=== PATIENT | female | born 1935 | race Caucasian/White ===

== ENCOUNTER 2016-12-01 16:40 | Emergency (ER) | payer MEDICARE, MEDICAID ==
[~2016-12-01] VITALS: Ht 162.6 cm; Wt 52.6 kg
[~2016-12-01 16:40] MED LIST: ALEN70TA5 PO; ALPR-475 PO; ALPR0.25 PO; ALPR0.5T6 PO; Amlodipine Besylate PO; DULO20CA45 PO; FLUO10CA13 PO; FLUO20CA8 PO; HYDR-3144 PO; HYDR-3240 PO; HYDR-3307 PO; LEVO250T23 PO; METH500T97 PO; METO25TA35 PO; NITR0.4T8 SL; PANT20TA2 PO; PANT40TA3 PO; PANT40TA5 PO; PREG75CA PO; TRIA1TAB3 PO; VALS320T2 PO; VALS40TA2 PO; ZOLP-413 PO
[2016-12-01 17:40] LABS: ASPARTATE AMINO TRANSFERASE 19 U/L (15-37); BLOOD UREA NITROGEN 47 mg/dL (7-18)
[2016-12-01] MEDS ORDERED: HYDR-3341 PO (17:58)
[2016-12-01] MEDS ORDERED: TRAZ50TA18 PO (17:58)
[2016-12-01] MEDS ORDERED: PANT40TA5 PO (17:59)
[2016-12-01] MEDS ORDERED: RISP0.5T3 PO (18:00)
[2016-12-01] MEDS ORDERED: CHLO25TA PO (18:01)
[2016-12-01] MEDS ORDERED: DEXAMETHASONE 4 MG/ML, 1ML PO ONE (19:00)
[2016-12-01] MEDS ORDERED: DEXAMETHASONE 4 MG/ML, 1ML ONE (19:06)
[2016-12-01 20:36] VITALS: BP 174/72
== END 2016-12-01 20:38 | disposition home or self-care (01) ==
LOC: ED 18:08
DX: J02.8 Acute pharyngitis due to other specified organisms (principal); M79.651 Pain in right thigh; I10 Essential (primary) hypertension; Z90.710 Acquired absence of both cervix and uterus
CPT/HCPCS: 36415; 73552; 80053; 81001; 85025; 93971; 99285; J1100

== ENCOUNTER 2016-12-03 23:12 | Inpatient (IN) | payer MEDICAID, MEDICARE ==
[~2016-12-03] VITALS: Ht 162.6 cm; Wt 46.5 kg
[2016-12-03] MEDS: POTASSIUM CHLORIDE 20 MEQ in SODIUM CHLORIDE 0.45% 1,000 ML IV SCH (02:25)
[~2016-12-03 23:12] MED LIST changes: +CHLO25TA PO; +HYDR-3341 PO; +RISP0.5T3 PO; +TRAZ50TA18 PO
[2016-12-04] MEDS ORDERED: POLYETHYLENE GLYCOL 17 GM PACKET PO PRN (00:53)
[2016-12-04] MEDS ORDERED: CHLORTHALIDONE 25 MG TABLET PO SCH (00:53)
[2016-12-04] MEDS ORDERED: TRAZODONE 50MG TABLET PO SCH (00:53)
[2016-12-04] MEDS ORDERED: DOCUSATE 100 MG CAPSULE PO SCH (00:53)
[2016-12-04] MEDS ORDERED: METOPROLOL TARTRATE 25 MG TABLET PO SCH (00:53)
[2016-12-04] MEDS: POTASSIUM CHLORIDE 20 MEQ in SODIUM CHLORIDE 0.45% 1,000 ML IV SCH ×2 (01:06→15:00)
[2016-12-04 01:40] VITALS: BP 193/72
[2016-12-04] MEDS: hydrALAzine 20 MG/ML, 1ML IV PRN (05:05)
[2016-12-04] MEDS ORDERED: SODIUM CHLORIDE 0.9% 1,000ML IV ONE (08:00)
[2016-12-04] MEDS ORDERED: ACETAMINOPHEN 500 MG TABLET PO PRN (15:00)
[2016-12-04] MEDS ORDERED: LABETALOL 5MG/ML, 20ML IV PRN (15:30)
[2016-12-04] MEDS ORDERED: TRAM50TA2 PO (15:35)
[2016-12-04] MEDS ORDERED: VANCOMYCIN 900 MG in SODIUM CHLORIDE 0.9% 100 ML IV ONE (16:30)
[2016-12-04] MEDS ORDERED: PHARMACOKINETIC CONSULTATION MC ONE (16:30)
[2016-12-04] MEDS ORDERED: VANCOMYCIN PER PHARMACY MC PRN (16:30)
[2016-12-04] MEDS ORDERED: PHARMACOKINETIC MONITORING MC PRN (16:30)
[2016-12-04] MEDS ORDERED: LEVOFLOXACIN/PMX 750MG/150ML 150 ML IV ONE (16:53)
[2016-12-04] MEDS ORDERED: ACETAMINOPHEN 120 MG SUPP PR PRN (17:00)
[2016-12-04 21:37] LABS: PATH.CAST-FLAG NOT PRESENT; SPERM-FLAG NOT PRESENT; SRC-FLAG NOT PRESENT; XTAL-FLAG NOT PRESENT; YLC-FLAG NOT PRESENT
[2016-12-04] MEDS: HEPARIN 5,000 UNITS/ML, 1ML SQ SCH (21:54)
[2016-12-05] MEDS: POTASSIUM CHLORIDE 20 MEQ in SODIUM CHLORIDE 0.45% 1,000 ML IV SCH ×3 (03:25→21:53)
[2016-12-05 05:19] LABS: ASPARTATE AMINO TRANSFERASE 29 U/L (15-37); BLOOD UREA NITROGEN 38 mg/dL (7-18)
[2016-12-05] MEDS: HEPARIN 5,000 UNITS/ML, 1ML SQ SCH ×3 (05:21→21:54)
[2016-12-05 06:04] LABS: DIFF TOTAL CELLS COUNTED 100 CELL DIFF
[2016-12-05 06:06] LABS: VERIFY COUNTS? YES
[2016-12-05] MEDS ORDERED: PANTOPROZOLE 40MG TABLET PO SCH (07:30)
[2016-12-05] MEDS ORDERED: MAGNESIUM SULFATE PMX 4GM/100M 100 ML IV ONE (09:00)
[2016-12-05] MEDS: PIPERACILLIN/TAZO 3.375 GM in SODIUM CHLORIDE 0.9% 50 ML IV SCH ×2 (13:54→21:54)
[2016-12-05] MEDS: ACETAMINOPHEN 325 MG TABLET PO PRN (19:24)
[2016-12-05] MEDS: PIPERACILLIN/TAZO/PMX 3.375GM 50 ML IV SCH (21:57)
[2016-12-06 04:00] VITALS: BP 140/48
[2016-12-06 04:51] LABS: DIFF TOTAL CELLS COUNTED 100 CELL DIFF
[2016-12-06 04:53] LABS: HYPOCHROMIA 1+; VERIFY COUNTS? YES
[2016-12-06] MEDS: HEPARIN 5,000 UNITS/ML, 1ML SQ SCH ×3 (04:56→20:13)
[2016-12-06] MEDS: PIPERACILLIN/TAZO/PMX 3.375GM 50 ML IV SCH ×2 (04:56→15:26)
[2016-12-06 05:51] LABS: BLOOD UREA NITROGEN 43 mg/dL (7-18)
[2016-12-06 09:28] VITALS: BP 168/57
[2016-12-06] MEDS ORDERED: VANCOMYCIN PMX 1GM/200ML 200 ML IV ONE (11:00)
[2016-12-06 11:42] VITALS: BP 150/71
[2016-12-06] MEDS ORDERED: POLYETHYLENE GLYCOL 17 GM PACKET PO PRN (12:00)
[2016-12-06] MEDS ORDERED: BISACODYL 10 MG SUPP PR PRN (12:00)
[2016-12-06 14:55] VITALS: BP 155/74
[2016-12-06 15:19] VITALS: BP 188/66
[2016-12-06] MEDS: POTASSIUM CHLORIDE 20 MEQ in SODIUM CHLORIDE 0.45% 1,000 ML IV SCH (15:21)
[2016-12-06 15:40] LABS: BLOOD UREA NITROGEN 42 mg/dL (7-18)
[2016-12-06 15:57] LABS: ASPARTATE AMINO TRANSFERASE 20 U/L (15-37); BLOOD UREA NITROGEN 50 mg/dL (7-18)
[2016-12-06] MEDS ORDERED: LEVOFLOXACIN/PMX 500MG/100ML 100 ML IV SCH (17:00)
[2016-12-06 18:43] VITALS: BP 146/69
[2016-12-06] MEDS: METOPROLOL TARTRATE 25 MG TABLET PO SCH (20:13)
[2016-12-07] VITALS (7 sets, daily range): BP systolic 130–195; BP diastolic 65–80
[2016-12-07] MEDS: PIPERACILLIN/TAZO/PMX 3.375GM 50 ML IV SCH ×3 (00:16→15:52)
[2016-12-07] MEDS: ACETAMINOPHEN 325 MG TABLET PO PRN ×2 (04:01→12:03)
[2016-12-07 05:40] LABS: DIFF TOTAL CELLS COUNTED 100 CELL DIFF
[2016-12-07 05:42] LABS: BLOOD UREA NITROGEN 34 mg/dL (7-18)
[2016-12-07 05:44] LABS: VERIFY COUNTS? YES
[2016-12-07] MEDS: HEPARIN 5,000 UNITS/ML, 1ML SQ SCH ×3 (05:46→21:19)
[2016-12-07] MEDS: hydrALAzine 20 MG/ML, 1ML IV PRN ×2 (07:48→16:03)
[2016-12-07] MEDS: METOPROLOL TARTRATE 25 MG TABLET PO SCH ×2 (07:48→21:19)
[2016-12-07] MEDS: DOCUSATE 100 MG CAPSULE PO SCH (07:48)
[2016-12-07] MEDS: POTASSIUM CHLORIDE 20 MEQ in SODIUM CHLORIDE 0.45% 1,000 ML IV SCH (08:45)
[2016-12-07] MEDS ORDERED: LABETALOL 5MG/ML, 20ML IV PRN ×2 (09:30→15:30)
[2016-12-07] MEDS ORDERED: HALOPERIDOL 0.5 MG TABLET PO PRN (11:30)
[2016-12-07] MEDS: PANTOPROZOLE 40MG TABLET PO SCH (12:03)
[2016-12-07] MEDS ORDERED: OMNIPAQUE 350 MG/ML, 100ML BOTTLE ONE (12:36)
[2016-12-07] MEDS ORDERED: AMLODIPINE 5 MG TABLET PO ONE (13:30)
[2016-12-07] MEDS: MORPHINE SULFATE 4 MG/ML, 1ML IVPush PRN ×2 (16:20→22:46)
[2016-12-07] MEDS: RISPERIDONE 0.5 MG TABLET PO SCH (21:19)
[2016-12-08] MEDS: PIPERACILLIN/TAZO/PMX 3.375GM 50 ML IV SCH ×3 (00:12→15:53)
[2016-12-08 00:43] VITALS: BP 164/71
[2016-12-08] MEDS: POTASSIUM CHLORIDE 20 MEQ in SODIUM CHLORIDE 0.45% 1,000 ML IV SCH ×2 (02:11→12:18)
[2016-12-08] MEDS: HEPARIN 5,000 UNITS/ML, 1ML SQ SCH ×3 (05:15→21:18)
[2016-12-08 05:33] LABS: BLOOD UREA NITROGEN 24 mg/dL (7-18)
[2016-12-08 06:52] VITALS: BP 160/62
[2016-12-08] MEDS: PANTOPROZOLE 40MG TABLET PO SCH (08:19)
[2016-12-08] MEDS: METOPROLOL TARTRATE 25 MG TABLET PO SCH ×2 (08:19→21:18)
[2016-12-08] MEDS: AMLODIPINE 5 MG TABLET PO SCH (08:19)
[2016-12-08] MEDS: DOCUSATE 100 MG CAPSULE PO SCH (08:20)
[2016-12-08] MEDS: RISPERIDONE 0.5 MG TABLET PO SCH ×2 (08:21→21:19)
[2016-12-08 13:31] VITALS: BP 109/56
[2016-12-08] MEDS: AMOXICILLIN/CLAV 500-125MG TABLET PO SCH (17:09)
[2016-12-08 19:23] VITALS: BP 144/63
[2016-12-08] MEDS: ACETAMINOPHEN 325 MG TABLET PO PRN (21:18)
[2016-12-09 01:57] VITALS: BP 171/68
[2016-12-09] MEDS: AMOXICILLIN/CLAV 500-125MG TABLET PO SCH ×2 (04:40→16:32)
[2016-12-09] MEDS: HEPARIN 5,000 UNITS/ML, 1ML SQ SCH ×3 (04:40→20:36)
[2016-12-09 05:01] LABS: BLOOD UREA NITROGEN 25 mg/dL (7-18)
[2016-12-09 07:09] VITALS: BP 176/67
[2016-12-09] MEDS: DOCUSATE 100 MG CAPSULE PO SCH (07:55)
[2016-12-09] MEDS: AMLODIPINE 5 MG TABLET PO SCH (08:07)
[2016-12-09] MEDS: METOPROLOL TARTRATE 25 MG TABLET PO SCH ×2 (08:07→20:36)
[2016-12-09] MEDS: PANTOPROZOLE 40MG TABLET PO SCH (08:07)
[2016-12-09] MEDS: RISPERIDONE 0.5 MG TABLET PO SCH ×2 (08:09→20:36)
[2016-12-09 14:48] VITALS: BP 168/68
[2016-12-09 19:07] VITALS: BP 161/55
[2016-12-09 22:40] VITALS: BP 189/63
[2016-12-10 01:08] VITALS: BP 159/69
[2016-12-10] MEDS: AMOXICILLIN/CLAV 500-125MG TABLET PO SCH ×2 (04:36→15:26)
[2016-12-10] MEDS: HEPARIN 5,000 UNITS/ML, 1ML SQ SCH ×3 (04:37→20:30)
[2016-12-10 07:48] VITALS: BP 182/70
[2016-12-10] MEDS: RISPERIDONE 0.5 MG TABLET PO SCH ×2 (09:00→20:29)
[2016-12-10] MEDS: PANTOPROZOLE 40MG TABLET PO SCH (09:05)
[2016-12-10] MEDS: AMLODIPINE 5 MG TABLET PO SCH (09:05)
[2016-12-10] MEDS: DOCUSATE 100 MG CAPSULE PO SCH (09:05)
[2016-12-10] MEDS: METOPROLOL TARTRATE 25 MG TABLET PO SCH ×2 (09:05→20:29)
[2016-12-10 10:41] VITALS: BP 168/71
[2016-12-10 13:08] VITALS: BP 163/66
[2016-12-10 19:11] VITALS: BP 161/73
[2016-12-11 00:19] VITALS: BP 152/64
[2016-12-11] MEDS: HEPARIN 5,000 UNITS/ML, 1ML SQ SCH ×2 (05:12→15:15)
[2016-12-11] MEDS: AMOXICILLIN/CLAV 500-125MG TABLET PO SCH ×2 (05:12→16:58)
[2016-12-11 07:03] VITALS: BP 152/60
[2016-12-11] MEDS: DOCUSATE 100 MG CAPSULE PO SCH (09:00)
[2016-12-11] MEDS: RISPERIDONE 0.5 MG TABLET PO SCH (10:41)
[2016-12-11] MEDS: METOPROLOL TARTRATE 25 MG TABLET PO SCH (10:41)
[2016-12-11] MEDS: AMLODIPINE 5 MG TABLET PO SCH (10:41)
[2016-12-11] MEDS: ACETAMINOPHEN 325 MG TABLET PO PRN (10:41)
[2016-12-11] MEDS: PANTOPROZOLE 40MG TABLET PO SCH (10:41)
[2016-12-11 13:03] VITALS: BP 130/63
[2016-12-11] MEDS ORDERED: AMLO5TAB2 PO (14:24)
[2016-12-11] MEDS ORDERED: AMOX-367 PO (14:24)
[2016-12-11 16:58] VITALS: BP 141/59
== END 2016-12-11 17:40 | DRG 871 ==
LOC: CCU 23:12 → 3NE 12-06 15:15
PROVIDERS: ADMIT Family Medicine; ATTEND Family Medicine
PROC: 0T9B70Z Drainage of Bladder with Drainage Device, Via Natural or Artificial Opening (ICD-10-PCS; principal; 2016-12-04)
DX: A41.9 Sepsis, unspecified organism (principal); J18.9 Pneumonia, unspecified organism; N17.9 Acute kidney failure, unspecified; M48.54XA Collapsed vertebra, not elsewhere classified, thoracic region, initial encounter for fracture; E87.2 Acidosis; I10 Essential (primary) hypertension; D64.9 Anemia, unspecified; E04.1 Nontoxic single thyroid nodule; E83.39 Other disorders of phosphorus metabolism; E83.42 Hypomagnesemia; F03.90 Unspecified dementia, unspecified severity, without behavioral disturbance, psychotic disturbance, mood disturbance, and anxiety; G89.29 Other chronic pain; I70.1 Atherosclerosis of renal artery; K59.00 Constipation, unspecified; K80.20 Calculus of gallbladder without cholecystitis without obstruction; M40.204 Unspecified kyphosis, thoracic region; R32 Unspecified urinary incontinence; E86.0 Dehydration
CPT/HCPCS: 36415; 71010; 71275; 80048; 80053; 81001; 82040; 83605; 83735; 84100; 84145; 84439; 84443; 85025; 87040; 87081; 87324; 93005; 93306; J1644; J1956; J2543; J3370; J3480; Q9967; J0360; J3475; J7030

== ENCOUNTER 2016-12-18 21:44 | Inpatient (IN) | payer MEDICARE ==
[~2016-12-18] VITALS: Ht 162.6 cm; Wt 54.2 kg
[~2016-12-18 21:44] MED LIST changes: +AMLO5TAB2 PO; +AMOX-367 PO; +TRAM50TA2 PO
[2016-12-18] MEDS ORDERED: LEVO500T33 PO (22:08)
[2016-12-18] MEDS ORDERED: SODIUM CHLORIDE 0.9% 1,000ML IVBOLUS ONE (22:30)
[2016-12-18 22:44] LABS: BLOOD UREA NITROGEN 46 mg/dL (7-18)
[2016-12-18] MEDS ORDERED: IBUPROFEN 200 MG TABLET ONE (23:48)
[2016-12-19] MEDS ORDERED: IBUPROFEN 200 MG TABLET PO ONE
[2016-12-19 00:21] LABS: RAPID INFLUENZA A Negative (Negative); RAPID INFLUENZA B Negative (Negative)
[2016-12-19] MEDS ORDERED: LEVOFLOXACIN/PMX 500MG/100ML 100 ML IV SCH (03:00)
[2016-12-19 03:37] VITALS: BP 143/63
[2016-12-19] MEDS ORDERED: MAGNESIUM HYDROXIDE 8%, 30ML UDC PO PRN (04:00)
[2016-12-19] MEDS ORDERED: LEVOFLOXACIN/PMX 750MG/150ML 150 ML IV SCH (04:00)
[2016-12-19 07:01] VITALS: BP 115/54
[2016-12-19] MEDS: AMLODIPINE 5 MG TABLET PO SCH (08:37)
[2016-12-19] MEDS: CHLORTHALIDONE 25 MG TABLET PO SCH (08:37)
[2016-12-19] MEDS: METOPROLOL TARTRATE 25 MG TABLET PO SCH ×2 (08:37→20:32)
[2016-12-19] MEDS: PANTOPROZOLE 40MG TABLET PO SCH (08:38)
[2016-12-19] MEDS: RISPERIDONE 0.5 MG TABLET PO SCH ×2 (08:38→20:32)
[2016-12-19] MEDS ORDERED: POTASSIUM CHLORIDE 20 MEQ in SODIUM CHLORIDE 0.45% 1,000 ML IV SCH (12:45)
[2016-12-19] MEDS: VANCOMYCIN 50 MG/ML ORAL SUSP PO SCH ×2 (13:26→20:31)
[2016-12-19 15:24] VITALS: BP 119/52
[2016-12-19 19:25] VITALS: BP 141/56
[2016-12-19] MEDS: TRAZODONE 50MG TABLET PO SCH (20:32)
[2016-12-19] MEDS: ACETAMINOPHEN 325 MG TABLET PO PRN (20:32)
[2016-12-20 01:17] VITALS: BP 128/67
[2016-12-20] MEDS: ACETAMINOPHEN 325 MG TABLET PO PRN ×3 (01:28→21:44)
[2016-12-20] MEDS: VANCOMYCIN 50 MG/ML ORAL SUSP PO SCH ×4 (01:52→21:43)
[2016-12-20 05:05] LABS: BLOOD UREA NITROGEN 48 mg/dL (7-18)
[2016-12-20] MEDS ORDERED: SODIUM CHLORIDE 0.9% 500 ML IV ONE (06:30)
[2016-12-20 07:25] VITALS: BP 142/59
[2016-12-20] MEDS: AMLODIPINE 5 MG TABLET PO SCH (08:16)
[2016-12-20] MEDS: METOPROLOL TARTRATE 25 MG TABLET PO SCH ×2 (08:17→21:44)
[2016-12-20] MEDS: PANTOPROZOLE 40MG TABLET PO SCH (08:18)
[2016-12-20] MEDS: RISPERIDONE 0.5 MG TABLET PO SCH ×2 (08:18→21:43)
[2016-12-20] MEDS: CHLORTHALIDONE 25 MG TABLET PO SCH (08:18)
[2016-12-20 13:59] VITALS: BP 156/61
[2016-12-20] MEDS: POTASSIUM CHLORIDE 20 MEQ in SODIUM CHLORIDE 0.45% 1,000 ML IV SCH (15:17)
[2016-12-20] MEDS ORDERED: METRONIDAZOLE PMX 500MG/100ML 100 ML IV SCH (17:00)
[2016-12-20 18:03] LABS: DIFF TOTAL CELLS COUNTED 100 CELL DIFF
[2016-12-20 18:06] LABS: VERIFY COUNTS? YES
[2016-12-20] MEDS: METRONIDAZOLE PMX 500MG/100ML 100 ML IV SCH (18:08)
[2016-12-20 18:34] VITALS: BP 115/44
[2016-12-20 19:53] VITALS: BP 130/49
[2016-12-20 21:28] VITALS: BP 135/56
[2016-12-20] MEDS: TRAZODONE 50MG TABLET PO SCH (21:44)
[2016-12-21] MEDS: METRONIDAZOLE PMX 500MG/100ML 100 ML IV SCH ×3 (00:56→19:59)
[2016-12-21 01:03] VITALS: BP 106/49
[2016-12-21] MEDS: VANCOMYCIN 50 MG/ML ORAL SUSP PO SCH ×5 (04:00→22:17)
[2016-12-21] MEDS ORDERED: LEVOFLOXACIN/PMX 500MG/100ML 100 ML IV SCH (04:30)
[2016-12-21 05:19] LABS: BLOOD UREA NITROGEN 47 mg/dL (7-18)
[2016-12-21 05:44] LABS: DIFF TOTAL CELLS COUNTED 100 CELL DIFF
[2016-12-21] MEDS ORDERED: MAGNESIUM SULFATE PMX 2GM/50ML 50 ML IV ONE (06:00)
[2016-12-21 06:36] LABS: VERIFY COUNTS? YES
[2016-12-21 06:53] VITALS: BP 136/53
[2016-12-21] MEDS: POTASSIUM CHLORIDE 20 MEQ in SODIUM CHLORIDE 0.45% 1,000 ML IV SCH ×2 (08:12→08:57)
[2016-12-21] MEDS: CHLORTHALIDONE 25 MG TABLET PO SCH (08:13)
[2016-12-21] MEDS: RISPERIDONE 0.5 MG TABLET PO SCH ×2 (08:13→22:18)
[2016-12-21] MEDS: METOPROLOL TARTRATE 25 MG TABLET PO SCH ×2 (08:13→22:17)
[2016-12-21] MEDS: AMLODIPINE 5 MG TABLET PO SCH (08:13)
[2016-12-21] MEDS: PANTOPROZOLE 40MG TABLET PO SCH (08:13)
[2016-12-21 13:13] VITALS: BP 128/57
[2016-12-21 13:44] LABS: BLOOD UREA NITROGEN 48 mg/dL (7-18)
[2016-12-21 21:22] VITALS: BP 121/55
[2016-12-21] MEDS ORDERED: NS + 20MEQ KCL 1,000 ML IV SCH (22:00)
[2016-12-21] MEDS ORDERED: POTASSIUM CHLORIDE 20 MEQ in SODIUM CHLORIDE 0.45% 1,000 ML IV SCH (22:00)
[2016-12-21] MEDS: TRAZODONE 50MG TABLET PO SCH (22:18)
[2016-12-22 01:50] VITALS: BP 114/60
[2016-12-22] MEDS: VANCOMYCIN 50 MG/ML ORAL SUSP PO SCH ×4 (03:54→21:45)
[2016-12-22] MEDS: METRONIDAZOLE PMX 500MG/100ML 100 ML IV SCH ×3 (03:54→19:57)
[2016-12-22 06:19] LABS: BLOOD UREA NITROGEN 56 mg/dL (7-18)
[2016-12-22 06:48] LABS: TOTAL IRON BINDING CAPACITY 105 mcg/dL (250-450)
[2016-12-22 07:49] LABS: DIFF TOTAL CELLS COUNTED 100 CELL DIFF
[2016-12-22 07:53] LABS: VERIFY COUNTS? YES
[2016-12-22 09:03] VITALS: BP 121/53
[2016-12-22] MEDS: RISPERIDONE 0.5 MG TABLET PO SCH ×2 (10:16→21:44)
[2016-12-22] MEDS: PANTOPROZOLE 40MG TABLET PO SCH (10:16)
[2016-12-22] MEDS: METOPROLOL TARTRATE 25 MG TABLET PO SCH ×2 (10:16→21:44)
[2016-12-22] MEDS: AMLODIPINE 5 MG TABLET PO SCH (10:16)
[2016-12-22] MEDS: CHLORTHALIDONE 25 MG TABLET PO SCH (10:17)
[2016-12-22] MEDS ORDERED: POTASSIUM CHLORIDE 20 MEQ in SODIUM CHLORIDE 0.45% 1,000 ML IV SCH (12:45)
[2016-12-22 13:21] VITALS: BP 106/51
[2016-12-22 19:51] VITALS: BP 113/48
[2016-12-22] MEDS: TRAZODONE 50MG TABLET PO SCH (21:43)
[2016-12-23] MEDS: POTASSIUM CHLORIDE 20 MEQ in SODIUM CHLORIDE 0.45% 1,000 ML IV SCH ×2 (01:38→09:35)
[2016-12-23 02:43] VITALS: BP 112/51
[2016-12-23] MEDS: VANCOMYCIN 50 MG/ML ORAL SUSP PO SCH ×4 (03:43→21:41)
[2016-12-23] MEDS: METRONIDAZOLE PMX 500MG/100ML 100 ML IV SCH ×3 (03:43→19:49)
[2016-12-23 05:23] LABS: ASPARTATE AMINO TRANSFERASE 10 U/L (15-37); BLOOD UREA NITROGEN 69 mg/dL (7-18)
[2016-12-23 05:51] LABS: DIFF TOTAL CELLS COUNTED 100 CELL DIFF
[2016-12-23 05:53] LABS: ANISOCYTOSIS 1+; POLYCHROMASIA 1+; VERIFY COUNTS? YES
[2016-12-23 06:46] VITALS: BP 118/53
[2016-12-23] MEDS: AMLODIPINE 5 MG TABLET PO SCH (08:35)
[2016-12-23] MEDS: RISPERIDONE 0.5 MG TABLET PO SCH ×2 (08:35→21:42)
[2016-12-23] MEDS: METOPROLOL TARTRATE 25 MG TABLET PO SCH ×2 (08:36→21:42)
[2016-12-23] MEDS: CHLORTHALIDONE 25 MG TABLET PO SCH (08:36)
[2016-12-23] MEDS: HYDROcodone/APAP 5/325 TABLET PO PRN ×2 (09:57→19:50)
[2016-12-23 12:36] VITALS: BP 98/44
[2016-12-23 12:41] LABS: PATH.CAST-FLAG NOT PRESENT; SPERM-FLAG NOT PRESENT; SRC-FLAG NOT PRESENT; XTAL-FLAG NOT PRESENT; YLC-FLAG NOT PRESENT
[2016-12-23 18:38] VITALS: BP 152/94
[2016-12-23 19:22] VITALS: BP 120/56
[2016-12-23] MEDS: TRAZODONE 50MG TABLET PO SCH (21:42)
[2016-12-24] MEDS: POTASSIUM CHLORIDE 20 MEQ in SODIUM CHLORIDE 0.45% 1,000 ML IV SCH ×2 (00:36→08:05)
[2016-12-24 00:39] VITALS: BP 99/45
[2016-12-24 04:59] LABS: BLOOD UREA NITROGEN 68 mg/dL (7-18)
[2016-12-24] MEDS: VANCOMYCIN 50 MG/ML ORAL SUSP PO SCH ×3 (05:07→18:30)
[2016-12-24] MEDS: METRONIDAZOLE PMX 500MG/100ML 100 ML IV SCH ×3 (05:07→22:21)
[2016-12-24 05:51] LABS: DIFF TOTAL CELLS COUNTED 100 CELL DIFF
[2016-12-24 05:53] LABS: ANISOCYTOSIS 1+; VERIFY COUNTS? YES
[2016-12-24 05:55] LABS: POLYCHROMASIA 1+
[2016-12-24 06:37] VITALS: BP 114/48
[2016-12-24] MEDS: AMLODIPINE 5 MG TABLET PO SCH (08:54)
[2016-12-24] MEDS: CHLORTHALIDONE 25 MG TABLET PO SCH (08:54)
[2016-12-24] MEDS: RISPERIDONE 0.5 MG TABLET PO SCH (08:54)
[2016-12-24] MEDS: METOPROLOL TARTRATE 25 MG TABLET PO SCH (08:54)
[2016-12-24] MEDS: HYDROcodone/APAP 5/325 TABLET PO PRN (08:59)
[2016-12-24 12:57] VITALS: BP 123/59
[2016-12-24] MEDS ORDERED: LACTATED RINGERS 1,000 ML IV SCH (13:00)
[2016-12-24] MEDS ORDERED: MIDAZOLAM 1 MG/ML, 2ML ONE (16:12)
[2016-12-24] MEDS ORDERED: FENTANYL PF 250 MCG/5ML ONE (16:12)
[2016-12-24] MEDS ORDERED: SUCCINYLCHOLINE 20 MG/ML, 10ML ONE (16:46)
[2016-12-24] MEDS ORDERED: PHENYLEPHRINE 10 MG/ML ONE (16:46)
[2016-12-24] MEDS ORDERED: PROPOFOL 10 MG/ML, 20ML ONE ×2 (16:46)
[2016-12-24] MEDS ORDERED: EPHEDRINE 50 MG/ML, 1ML ONE (16:46)
[2016-12-24] MEDS ORDERED: ALBUMIN HUMAN 5% 500 ML ONE (19:06)
[2016-12-24] MEDS ORDERED: THROMBIN 20,000 UNIT VIAL TP ONE ×2 (19:10→19:17)
[2016-12-24 20:05] LABS: ABG COLLECTION SITE ARTERIAL LINE
[2016-12-24] MEDS: TRAZODONE 50MG TABLET PO SCH (21:00)
[2016-12-24] MEDS ORDERED: PROPOFOL 100 ML IV PRN ×2 (21:00→21:52)
[2016-12-24] MEDS ORDERED: MIDAZOLAM 1 MG/ML, 5ML IVPush PRN (21:00)
[2016-12-24] MEDS ORDERED: NOREPINEPHRINE 4 MG in SODIUM CHLORIDE 0.9% 246 ML IV PRN (21:00)
[2016-12-24] MEDS: NOREPINEPHRINE 4 MG in SODIUM CHLORIDE 0.9% 246 ML IV PRN (21:15)
[2016-12-24 21:20] LABS: ABG COLLECTION SITE ARTERIAL LINE
[2016-12-24] MEDS: SODIUM CHLORIDE 0.9% 1,000 ML IV SCH (21:30)
[2016-12-24] MEDS ORDERED: VASOPRESSIN 100 UNIT in SODIUM CHLORIDE 0.9% 495 ML IV PRN (21:52)
[2016-12-24] MEDS ORDERED: DEXTROSE 50%, 50ML SYRINGE IVPush PRN (22:00)
[2016-12-24] MEDS ORDERED: PHARMACY MAY ADJ FOR RENAL FX MC SCH (22:00)
[2016-12-24] MEDS ORDERED: GLUCAGON 1 MG IM PRN (22:00)
[2016-12-24] MEDS ORDERED: DEXTROSE 4 GM TAB.CHEW PO PRN (22:00)
[2016-12-24] MEDS ORDERED: FENTANYL PF 100 MCG/2ML IVPush PRN (22:00)
[2016-12-24] MEDS ORDERED: LIDOCAINE-MPF 1%, 2ML ENDO PRN (22:00)
[2016-12-24] MEDS: ALBUTEROL/IPRATROPIUM 2.5MG/0.5MG, 3 ML INLINE SCH (22:10)
[2016-12-24] MEDS ORDERED: SODIUM ACETATE 2 MEQ/ML IV SCH (22:30)
[2016-12-24] MEDS: FAMOTIDINE 20 MG/2 ML IV SCH (22:59)
[2016-12-24] MEDS: SODIUM CHLORIDE FLUSH 10ML SYR IVF SCH (22:59)
[2016-12-24] MEDS: SODIUM ACETATE 150 MEQ in DEXTROSE 5% 1,000 ML IV SCH (23:00)
[2016-12-24] MEDS: INSULIN ASPART 100 UNITS/ML, PEN SQ-INSULIN SCH (23:26)
[2016-12-25] MEDS: VANCOMYCIN 50 MG/ML ORAL SUSP PO SCH ×4 (00:30→16:26)
[2016-12-25 01:05] LABS: ABG COLLECTION SITE ARTERIAL LINE
[2016-12-25] MEDS: ALBUTEROL/IPRATROPIUM 2.5MG/0.5MG, 3 ML INLINE SCH ×6 (03:57→22:45)
[2016-12-25] MEDS: SODIUM CHLORIDE 0.9% 1,000 ML IV SCH ×3 (04:10→21:11)
[2016-12-25 04:50] LABS: ABG COLLECTION SITE ARTERIAL LINE
[2016-12-25 05:00] VITALS: BP 130/38
[2016-12-25 05:03] LABS: BLOOD UREA NITROGEN 46 mg/dL (7-18)
[2016-12-25 05:07] LABS: ASPARTATE AMINO TRANSFERASE 13 U/L (15-37)
[2016-12-25 05:31] LABS: DIFF TOTAL CELLS COUNTED 100 CELL DIFF
[2016-12-25 05:34] LABS: ANISOCYTOSIS 1+; VERIFY COUNTS? YES
[2016-12-25] MEDS: SODIUM ACETATE 150 MEQ in DEXTROSE 5% 1,000 ML IV SCH ×3 (06:11→21:09)
[2016-12-25] MEDS: METRONIDAZOLE PMX 500MG/100ML 100 ML IV SCH ×3 (06:11→22:27)
[2016-12-25] MEDS: INSULIN ASPART 100 UNITS/ML, PEN SQ-INSULIN SCH ×4 (06:18→21:09)
[2016-12-25] MEDS: NOREPINEPHRINE 4 MG in SODIUM CHLORIDE 0.9% 246 ML IV PRN (08:27)
[2016-12-25] MEDS: SODIUM CHLORIDE FLUSH 10ML SYR IVF SCH ×2 (09:14→21:10)
[2016-12-25] MEDS: FAMOTIDINE 20 MG/2 ML IV SCH (11:42)
[2016-12-25] MEDS: VANCOMYCIN 50 MG/ML ORAL SUSP PR SCH ×2 (12:13→20:40)
[2016-12-25] MEDS: TRAZODONE 50MG TABLET PO SCH (21:10)
[2016-12-26] MEDS: VANCOMYCIN 50 MG/ML ORAL SUSP PO SCH ×4 (00:41→16:33)
[2016-12-26] MEDS: ALBUTEROL/IPRATROPIUM 2.5MG/0.5MG, 3 ML INLINE SCH ×3 (02:30→10:00)
[2016-12-26] MEDS: VANCOMYCIN 50 MG/ML ORAL SUSP PR SCH (03:29)
[2016-12-26 04:24] LABS: ABG COLLECTION SITE ARTERIAL LINE
[2016-12-26 04:39] LABS: BLOOD UREA NITROGEN 33 mg/dL (7-18)
[2016-12-26 04:48] VITALS: BP 155/44
[2016-12-26 05:17] LABS: DIFF TOTAL CELLS COUNTED 100 CELL DIFF
[2016-12-26 05:20] LABS: ANISOCYTOSIS 1+; POLYCHROMASIA 1+; VERIFY COUNTS? YES
[2016-12-26] MEDS: SODIUM ACETATE 150 MEQ in DEXTROSE 5% 1,000 ML IV SCH (05:29)
[2016-12-26] MEDS: METRONIDAZOLE PMX 500MG/100ML 100 ML IV SCH ×3 (05:51→21:59)
[2016-12-26] MEDS: SODIUM CHLORIDE 0.9% 1,000 ML IV SCH (05:51)
[2016-12-26] MEDS: INSULIN ASPART 100 UNITS/ML, PEN SQ-INSULIN SCH ×4 (06:40→21:59)
[2016-12-26] MEDS ORDERED: POTASSIUM CHLORIDE 40 MEQ in SODIUM CHLORIDE 0.9% 100 ML IV ONE (08:00)
[2016-12-26] MEDS ORDERED: MAGNESIUM SULFATE PMX 4GM/100M 100 ML IV ONE (08:00)
[2016-12-26] MEDS: FAMOTIDINE 20 MG/2 ML IV SCH (09:00)
[2016-12-26] MEDS ORDERED: FUROSEMIDE 20 MG/2 ML IV ONE (09:30)
[2016-12-26] MEDS: SODIUM CHLORIDE FLUSH 10ML SYR IVF SCH ×2 (10:04→22:01)
[2016-12-26 17:06] LABS: BLOOD UREA NITROGEN 26 mg/dL (7-18)
[2016-12-26] MEDS ORDERED: POTASSIUM PHOSPHATE 44 MEQ in SODIUM CHLORIDE 0.9% 500 ML IV ONE (18:00)
[2016-12-26] MEDS: TRAZODONE 50MG TABLET PO SCH (21:59)
[2016-12-27] MEDS: VANCOMYCIN 50 MG/ML ORAL SUSP PO SCH ×4 (00:35→18:30)
[2016-12-27 04:34] LABS: ABG COLLECTION SITE RIGHT RADIAL; COLLATERAL CIRCULATION TESTING NORMAL
[2016-12-27 05:24] LABS: BLOOD UREA NITROGEN 25 mg/dL (7-18)
[2016-12-27 05:38] LABS: DIFF TOTAL CELLS COUNTED 100 CELL DIFF
[2016-12-27 05:41] LABS: ANISOCYTOSIS 1+; POIKILOCYTOSIS 1+; POLYCHROMASIA 1+; VERIFY COUNTS? YES
[2016-12-27 05:47] VITALS: BP 130/47
[2016-12-27] MEDS: METRONIDAZOLE PMX 500MG/100ML 100 ML IV SCH ×3 (06:44→22:10)
[2016-12-27] MEDS: INSULIN ASPART 100 UNITS/ML, PEN SQ-INSULIN SCH ×4 (06:50→21:00)
[2016-12-27] MEDS: FAMOTIDINE 20 MG/2 ML IV SCH (07:47)
[2016-12-27] MEDS: VANCOMYCIN 50 MG/ML ORAL SUSP PR SCH ×2 (07:49→17:26)
[2016-12-27] MEDS: SODIUM CHLORIDE FLUSH 10ML SYR IVF SCH ×2 (07:49→22:09)
[2016-12-27] MEDS: HEPARIN 5,000 UNITS/ML, 1ML SQ SCH ×2 (09:33→17:26)
[2016-12-27 15:57] VITALS: BP 176/78
[2016-12-27 20:49] VITALS: BP 161/76
[2016-12-27] MEDS: TRAZODONE 50MG TABLET PO SCH (22:09)
[2016-12-27] MEDS: HYDROcodone/APAP 5/325 TABLET PO PRN (22:53)
[2016-12-28] MEDS: VANCOMYCIN 50 MG/ML ORAL SUSP PO SCH ×4 (00:46→17:39)
[2016-12-28] MEDS: VANCOMYCIN 50 MG/ML ORAL SUSP PR SCH ×2 (00:46→08:00)
[2016-12-28] MEDS: HEPARIN 5,000 UNITS/ML, 1ML SQ SCH ×3 (00:47→16:30)
[2016-12-28 02:05] VITALS: BP 150/65
[2016-12-28] MEDS: METRONIDAZOLE PMX 500MG/100ML 100 ML IV SCH ×3 (05:47→21:27)
[2016-12-28 06:08] LABS: BLOOD UREA NITROGEN 25 mg/dL (7-18)
[2016-12-28 06:58] VITALS: BP 148/68
[2016-12-28] MEDS: INSULIN ASPART 100 UNITS/ML, PEN SQ-INSULIN SCH ×3 (07:00→18:01)
[2016-12-28 07:51] LABS: DIFF TOTAL CELLS COUNTED 100 CELL DIFF
[2016-12-28 07:55] LABS: ANISOCYTOSIS 1+; POIKILOCYTOSIS 1+; POLYCHROMASIA 1+; VERIFY COUNTS? YES
[2016-12-28 07:56] VITALS: BP 154/82
[2016-12-28] MEDS: FAMOTIDINE 20 MG/2 ML IV SCH (11:05)
[2016-12-28] MEDS: SODIUM CHLORIDE FLUSH 10ML SYR IVF SCH ×2 (11:05→21:00)
[2016-12-28] MEDS: HYDROcodone/APAP 5/325 TABLET PO PRN (11:10)
[2016-12-28] MEDS ORDERED: SODIUM CHLORIDE 0.9% 1,000 ML IV SCH (11:30)
[2016-12-28] MEDS ORDERED: LISINOPRIL 5 MG TABLET PO SCH (12:00)
[2016-12-28 14:00] VITALS: BP 170/84
[2016-12-28] MEDS ORDERED: METOPROLOL 1 MG/ML, 5ML IVPush PRN (18:00)
[2016-12-28 19:31] VITALS: BP 173/82
[2016-12-28] MEDS: TRAZODONE 50MG TABLET PO SCH (21:00)
[2016-12-29] MEDS: VANCOMYCIN 50 MG/ML ORAL SUSP PO SCH ×3 (00:30→12:30)
[2016-12-29 01:00] VITALS: BP 154/72
[2016-12-29] MEDS: INSULIN ASPART 100 UNITS/ML, PEN SQ-INSULIN SCH ×4 (01:00→19:00)
[2016-12-29] MEDS: HEPARIN 5,000 UNITS/ML, 1ML SQ SCH ×3 (01:08→17:19)
[2016-12-29] MEDS: SODIUM CHLORIDE 0.9% 1,000 ML IV SCH ×3 (01:54→22:16)
[2016-12-29 05:30] LABS: BLOOD UREA NITROGEN 21 mg/dL (7-18)
[2016-12-29] MEDS: METRONIDAZOLE PMX 500MG/100ML 100 ML IV SCH ×3 (06:25→22:16)
[2016-12-29 07:33] VITALS: BP 180/79
[2016-12-29] MEDS: SODIUM CHLORIDE FLUSH 10ML SYR IVF SCH ×2 (09:08→22:16)
[2016-12-29 09:10] VITALS: BP 176/72
[2016-12-29 14:28] VITALS: BP 186/82
[2016-12-29] MEDS: HYDROmorphone 1 MG/ML, 1ML IV PRN ×2 (16:55→22:26)
[2016-12-29 17:55] VITALS: BP 160/84
[2016-12-29] MEDS: TRAZODONE 50MG TABLET PO SCH (20:01)
[2016-12-29 20:25] VITALS: BP 165/71
[2016-12-29 22:46] LABS: OCCBLD OBC PASS
[2016-12-30] MEDS: HEPARIN 5,000 UNITS/ML, 1ML SQ SCH ×3 (00:41→16:36)
[2016-12-30] MEDS: INSULIN ASPART 100 UNITS/ML, PEN SQ-INSULIN SCH ×4 (01:00→19:00)
[2016-12-30 02:14] VITALS: BP 171/78
[2016-12-30 05:13] LABS: BLOOD UREA NITROGEN 24 mg/dL (7-18)
[2016-12-30] MEDS: METRONIDAZOLE PMX 500MG/100ML 100 ML IV SCH ×3 (05:39→22:17)
[2016-12-30 09:00] VITALS: BP 151/68
[2016-12-30] MEDS: SODIUM CHLORIDE FLUSH 10ML SYR IVF SCH ×2 (09:34→20:16)
[2016-12-30] MEDS: SODIUM CHLORIDE 0.9% 1,000 ML IV SCH ×2 (09:34→20:00)
[2016-12-30] MEDS: HYDROmorphone 1 MG/ML, 1ML IV PRN ×2 (10:03→23:39)
[2016-12-30] MEDS: METOPROLOL 1 MG/ML, 5ML IVPush SCH ×3 (11:22→20:23)
[2016-12-30 16:17] VITALS: BP 141/65
[2016-12-30] MEDS: TRAZODONE 50MG TABLET PO SCH (20:16)
[2016-12-30 20:17] VITALS: BP 153/64
[2016-12-31] MEDS: INSULIN ASPART 100 UNITS/ML, PEN SQ-INSULIN SCH ×4 (01:00→20:45)
[2016-12-31 01:09] VITALS: BP 146/59
[2016-12-31] MEDS: HEPARIN 5,000 UNITS/ML, 1ML SQ SCH ×4 (01:14→23:31)
[2016-12-31] MEDS: METOPROLOL 1 MG/ML, 5ML IVPush SCH ×7 (01:15→23:31)
[2016-12-31 05:14] LABS: BLOOD UREA NITROGEN 28 mg/dL (7-18)
[2016-12-31 05:19] VITALS: BP 160/68
[2016-12-31] MEDS: SODIUM CHLORIDE 0.9% 1,000 ML IV SCH (05:24)
[2016-12-31] MEDS: METRONIDAZOLE PMX 500MG/100ML 100 ML IV SCH ×3 (05:24→22:12)
[2016-12-31 05:36] LABS: DIFF TOTAL CELLS COUNTED 100 CELL DIFF
[2016-12-31 05:39] LABS: ANISOCYTOSIS 1+; VERIFY COUNTS? YES
[2016-12-31] MEDS ORDERED: MAGNESIUM SULFATE PMX 2GM/50ML 50 ML IV ONE (06:30)
[2016-12-31] MEDS ORDERED: POTASSIUM CHLORIDE 20 MEQ in SODIUM CHLORIDE 0.45% 1,000 ML IV SCH (06:30)
[2016-12-31 08:24] VITALS: BP 137/54
[2016-12-31] MEDS: POTASSIUM CHLORIDE 20 MEQ in SODIUM CHLORIDE 0.45% 1,000 ML IV SCH ×2 (08:29→21:22)
[2016-12-31] MEDS: HYDROmorphone 1 MG/ML, 1ML IV PRN ×2 (08:30→21:51)
[2016-12-31] MEDS: SODIUM CHLORIDE FLUSH 10ML SYR IVF SCH ×2 (09:00→21:28)
[2016-12-31] MEDS: VANCOMYCIN 50 MG/ML ORAL SUSP PO SCH ×3 (10:30→22:14)
[2016-12-31 14:08] VITALS: BP 134/61
[2016-12-31] MEDS ORDERED: CEFTRIAXONE PMX 1GM/50ML 50 ML IV SCH (15:00)
[2016-12-31 21:00] VITALS: BP 150/61
[2016-12-31] MEDS: TRAZODONE 50MG TABLET PO SCH (21:23)
[2016-12-31 23:11] VITALS: BP 150/61
[2017-01-01] VITALS (12 sets, daily range): BP systolic 116–148; BP diastolic 45–75
[2017-01-01] MEDS: METOPROLOL 1 MG/ML, 5ML IVPush SCH ×6 (00:26→22:09)
[2017-01-01] MEDS: VANCOMYCIN 50 MG/ML ORAL SUSP PO SCH ×4 (04:21→23:15)
[2017-01-01 05:31] LABS: BLOOD UREA NITROGEN 36 mg/dL (7-18)
[2017-01-01] MEDS: METRONIDAZOLE PMX 500MG/100ML 100 ML IV SCH ×3 (05:53→22:09)
[2017-01-01] MEDS: INSULIN ASPART 100 UNITS/ML, PEN SQ-INSULIN SCH ×4 (07:00→22:02)
[2017-01-01] MEDS ORDERED: DIPHENHYDRAMINE 50 MG/ML, 1ML IVPush ONE (07:30)
[2017-01-01] MEDS: SODIUM CHLORIDE FLUSH 10ML SYR IVF SCH ×2 (09:46→22:09)
[2017-01-01] MEDS: HEPARIN 5,000 UNITS/ML, 1ML SQ SCH ×2 (09:51→18:09)
[2017-01-01] MEDS ORDERED: PANTOPRAZOLE 20MG TABLET PO SCH (13:00)
[2017-01-01] MEDS: POTASSIUM CHLORIDE 20 MEQ in SODIUM CHLORIDE 0.45% 1,000 ML IV SCH (14:21)
[2017-01-01] MEDS: CEFTRIAXONE PMX 1GM/50ML 50 ML IV SCH (15:37)
[2017-01-01] MEDS ORDERED: PANTOPRAZOLE 80 MG in SODIUM CHLORIDE 0.9% 50 ML IV ONE (16:30)
[2017-01-01] MEDS: PANTOPRAZOLE 80 MG in SODIUM CHLORIDE 0.9% 100 ML IV SCH (17:28)
[2017-01-01] MEDS: TRAZODONE 50MG TABLET PO SCH (23:15)
[2017-01-02] MEDS: HEPARIN 5,000 UNITS/ML, 1ML SQ SCH (02:01)
[2017-01-02 02:08] VITALS: BP 150/57
[2017-01-02] MEDS: METOPROLOL 1 MG/ML, 5ML IVPush SCH ×5 (02:08→21:19)
[2017-01-02] MEDS: PANTOPRAZOLE 80 MG in SODIUM CHLORIDE 0.9% 100 ML IV SCH ×3 (02:08→23:48)
[2017-01-02] MEDS: POTASSIUM CHLORIDE 20 MEQ in SODIUM CHLORIDE 0.45% 1,000 ML IV SCH ×2 (02:08→13:46)
[2017-01-02 05:00] LABS: BLOOD UREA NITROGEN 35 mg/dL (7-18)
[2017-01-02] MEDS: VANCOMYCIN 50 MG/ML ORAL SUSP PO SCH ×3 (05:49→21:19)
[2017-01-02] MEDS: METRONIDAZOLE PMX 500MG/100ML 100 ML IV SCH ×3 (05:49→23:26)
[2017-01-02] MEDS ORDERED: MAGNESIUM SULFATE PMX 2GM/50ML 50 ML IV ONE (06:30)
[2017-01-02 07:31] VITALS: BP 163/71
[2017-01-02] MEDS ORDERED: PANTOPRAZOLE 40 MG IV IVPush SCH (09:00)
[2017-01-02] MEDS: INSULIN ASPART 100 UNITS/ML, PEN SQ-INSULIN SCH ×4 (10:38→20:38)
[2017-01-02] MEDS: SODIUM CHLORIDE FLUSH 10ML SYR IVF SCH ×2 (10:38→21:20)
[2017-01-02 12:34] VITALS: BP 175/82
[2017-01-02] MEDS ORDERED: hydrALAzine 20 MG/ML, 1ML IV PRN (15:00)
[2017-01-02] MEDS ORDERED: SODIUM CHLORIDE 0.9% 1,000ML IVBOLUS ONE (15:00)
[2017-01-02] MEDS: CEFTRIAXONE PMX 1GM/50ML 50 ML IV SCH (18:30)
[2017-01-02 20:00] VITALS: BP 170/81
[2017-01-02] MEDS: TRAZODONE 50MG TABLET PO SCH (21:19)
[2017-01-03 01:38] VITALS: BP 169/81
[2017-01-03 02:06] VITALS: BP 160/82
[2017-01-03] MEDS: METOPROLOL 1 MG/ML, 5ML IVPush SCH ×5 (02:12→18:26)
[2017-01-03] MEDS: VANCOMYCIN 50 MG/ML ORAL SUSP PO SCH ×3 (04:14→18:26)
[2017-01-03 05:19] LABS: BLOOD UREA NITROGEN 33 mg/dL (7-18)
[2017-01-03] MEDS ORDERED: POTASSIUM PHOSPHATE 44 MEQ in SODIUM CHLORIDE 0.9% 500 ML IV ONE (06:00)
[2017-01-03] MEDS: METRONIDAZOLE PMX 500MG/100ML 100 ML IV SCH ×2 (06:06→18:25)
[2017-01-03] MEDS ORDERED: POTASSIUM CHLORIDE 20 MEQ in SODIUM CHLORIDE 0.45% 1,000 ML IV SCH (08:00)
[2017-01-03] MEDS: PANTOPRAZOLE 80 MG in SODIUM CHLORIDE 0.9% 100 ML IV SCH (08:30)
[2017-01-03 08:35] VITALS: BP 158/70
[2017-01-03] MEDS ORDERED: PANTOPRAZOLE GRAN. PKT 40 MG NG SCH (09:30)
[2017-01-03] MEDS: SUCRALFATE 1 GM/10 ML UDC NG SCH ×2 (10:30→18:26)
[2017-01-03] MEDS: SODIUM CHLORIDE FLUSH 10ML SYR IVF SCH (10:31)
[2017-01-03] MEDS: INSULIN ASPART 100 UNITS/ML, PEN SQ-INSULIN SCH ×3 (10:31→18:27)
[2017-01-03 11:59] LABS: CELLS COUNTED 80; DILUTION 1; WBC SQUARES COUNTED 10
[2017-01-03 14:10] VITALS: BP 157/84
[2017-01-03] MEDS ORDERED: SODIUM CHLORIDE 0.9% 1,000ML IVBOLUS ONE (16:00)
[2017-01-03] MEDS: CEFTRIAXONE PMX 1GM/50ML 50 ML IV SCH (18:25)
[2017-01-03] MEDS ORDERED: MORPHINE SULFATE 4 MG/ML, 1ML IVPush PRN ×2 (19:30)
[2017-01-03] MEDS ORDERED: LORazepam 2 MG/ML, 1ML IVPush PRN (19:30)
[2017-01-03] MEDS ORDERED: SCOPOLAMINE PATCH, 1.5MG PATCH.TD72 TD PRN (19:30)
[2017-01-03 20:42] VITALS: BP 178/85
[2017-01-04] MEDS: morphine SULFATE 125 MG in SODIUM CHLORIDE 0.9% 237.5 ML IV PRN (00:10)
[2017-01-04] MEDS ORDERED: POTASSIUM CHLORIDE 20 MEQ in SODIUM CHLORIDE 0.45% 1,000 ML IV SCH (08:00)
[2017-01-04] MEDS: ATROPINE OPHTH SOLN 1%, 2ML MM PRN ×5 (13:59→23:04)
[2017-01-05] MEDS: ATROPINE OPHTH SOLN 1%, 2ML MM PRN ×3 (03:03→06:15)
[2017-01-05] MEDS: morphine SULFATE 125 MG in SODIUM CHLORIDE 0.9% 237.5 ML IV PRN (07:12)
== END 2017-01-05 10:00 | disposition expired | DRG 853 ==
LOC: ED 23:59 → EDIP 12-19 02:39 → 3NE 12-19 03:37 → CCU 12-24 20:24 → 4WST 12-27 15:25 → 3NW 01-03 23:28
PROVIDERS: ADMIT Family Medicine; ATTEND Family Medicine
PROC: 0T9B70Z Drainage of Bladder with Drainage Device, Via Natural or Artificial Opening (ICD-10-PCS; 2016-12-23)
PROC: 0D1B0Z4 Bypass Ileum to Cutaneous, Open Approach (ICD-10-PCS; 2016-12-24)
PROC: 30233N1 Transfusion of Nonautologous Red Blood Cells into Peripheral Vein, Percutaneous Approach (ICD-10-PCS; 2016-12-24)
PROC: 0DTE0ZZ Resection of Large Intestine, Open Approach (ICD-10-PCS; principal; 2016-12-24 18:00)
PROC: 5A1945Z Respiratory Ventilation, 24-96 Consecutive Hours (ICD-10-PCS; 2016-12-25)
PROC: 0BH17EZ Insertion of Endotracheal Airway into Trachea, Via Natural or Artificial Opening (ICD-10-PCS; 2016-12-25)
PROC: 02HV33Z Insertion of Infusion Device into Superior Vena Cava, Percutaneous Approach (ICD-10-PCS; 2017-01-03)
PROC: B5181ZA Fluoroscopy of Superior Vena Cava using Low Osmolar Contrast, Guidance (ICD-10-PCS; 2017-01-03)
PROC: B548ZZA Ultrasonography of Superior Vena Cava, Guidance (ICD-10-PCS; 2017-01-03)
DX: A41.9 Sepsis, unspecified organism (principal); J96.00 Acute respiratory failure, unspecified whether with hypoxia or hypercapnia; E43 Unspecified severe protein-calorie malnutrition; J15.9 Unspecified bacterial pneumonia; K65.9 Peritonitis, unspecified; J69.0 Pneumonitis due to inhalation of food and vomit; R65.21 Severe sepsis with septic shock; A04.7 Enterocolitis due to Clostridium difficile; J91.8 Pleural effusion in other conditions classified elsewhere; N17.9 Acute kidney failure, unspecified; N39.0 Urinary tract infection, site not specified; D62 Acute posthemorrhagic anemia; K56.7 Ileus, unspecified; R18.8 Other ascites; Z99.11 Dependence on respirator [ventilator] status; N18.4 Chronic kidney disease, stage 4 (severe); D63.8 Anemia in other chronic diseases classified elsewhere; E04.1 Nontoxic single thyroid nodule; E11.22 Type 2 diabetes mellitus with diabetic chronic kidney disease; E86.0 Dehydration; F02.80 Dementia in other diseases classified elsewhere, unspecified severity, without behavioral disturbance, psychotic disturbance, mood disturbance, and anxiety; G30.1 Alzheimer's disease with late onset; I12.9 Hypertensive chronic kidney disease with stage 1 through stage 4 chronic kidney disease, or unspecified chronic kidney disease; I89.8 Other specified noninfective disorders of lymphatic vessels and lymph nodes; K21.9 Gastro-esophageal reflux disease without esophagitis; K22.70 Barrett's esophagus without dysplasia; M81.0 Age-related osteoporosis without current pathological fracture; K14.8 Other diseases of tongue; N73.6 Female pelvic peritoneal adhesions (postinfective); R13.10 Dysphagia, unspecified; R29.810 Facial weakness; R32 Unspecified urinary incontinence; Z51.5 Encounter for palliative care; Z90.710 Acquired absence of both cervix and uterus; Z88.8 Allergy status to other drugs, medicaments and biological substances; Z91.041 Radiographic dye allergy status; Z68.20 Body mass index [BMI] 20.0-20.9, adult; Z66 Do not resuscitate
CPT/HCPCS: 36415; 36569; 36600; 70450; 71010; 74000; 74022; 74176; 76937; 77001; 80048; 80053; 81001; 82040; 82272; 82436; 82570; 82607; 82728; 82746; 82803; 82945; 82962; 83540; 83550; 83605; 83735; 84100; 84133; 84134; 84145; 84300; 84478; 85025; 85045; 85651; 86140; 86677; 86756; 86850; 86900; 86923; 87040; 87070; 87081; 87086; 87106; 87205; 87324; 87400; 88112; 88305; 88307; 88341; 88342; 89051; 93005; 94002; 94003; 94640; 96360; C1729; J0696; J1170; J1644; J1815; J1956; J2250; J2704; J3010; J3370; J3480; J7070; J7620; P9045; C1751; C1765; C9113; G0461; J0330; J1200; J1940; J2060; J2270; J2370; J3475; J7030; J7040; J7050; J7120; P9016; S0028